=== PATIENT | female | born 2000 | race Two or more races ===

== ENCOUNTER 2018-09-19 04:20 | Emergency (ER) | payer SELFPAY ==
[~2018-09-19] VITALS: Ht 154.9 cm; Wt 86.2 kg
[2018-09-19 04:27] VITALS: BP 145/81
[2018-09-19] MEDS ORDERED: IBUPROFEN 600 MG TABLET PO ONE ×2 (04:30→05:04)
[2018-09-19] MEDS ORDERED: IBUPROFEN 200 MG TABLET ONE (06:33)
[2018-09-19] MEDS ORDERED: IBUPROFEN 400 MG TABLET ONE (06:33)
== END 2018-09-19 06:57 | disposition home or self-care (01) ==
LOC: ER 04:26
DX: S70.12XA Contusion of left thigh, initial encounter (principal); V47.5XXA Car driver injured in collision with fixed or stationary object in traffic accident, initial encounter; Y93.89 Activity, other specified; Y92.89 Other specified places as the place of occurrence of the external cause; Y99.8 Other external cause status
CPT/HCPCS: 73552; 84703-TC